=== PATIENT | female | born 1990 | race African-American/Black ===

== ENCOUNTER 2021-05-23 19:39 | Emergency (ER) | payer MEDICAID, OTHER ==
[~2021-05-23] VITALS: Ht 162.6 cm; Wt 102.1 kg
[2021-05-23] MEDS ORDERED: SODIUM CHLORIDE 0.9% 1,000 ML IV ONE (21:30)
[2021-05-23 22:27] LABS: Basophils # (auto) 0.1 10 ^3/uL (0-0.2); Basophils % (auto) 0.9 % (0.0-2.0); Eosinophils # (auto) 0 10 ^3/uL (0-0.8); Eosinophils % (auto) 0.3 % (0.0-7.0); Hematocrit 42.6 % (36.0-46.0); Hemoglobin 14.3 g/dL (12.2-16.2); Lymphocytes # (auto) 2.6 10 ^3/uL (0.4-5.4); Lymphocytes % (auto) 27.2 % (10.0-50.0); Mean Corpuscular Hemoglobin 30.1 pg (28.0-32.0); Mean Corpuscular Hgb Conc. 33.6 g/dL (32.0-36.0); Mean Corpuscular Volume 89.7 fL (80.0-100.0); Monocytes # (auto) 0.7 10 ^3/uL (0-1.3); Monocytes % (auto) 7.2 % (0.0-12.0); Neutrophils # (auto) 6.1 10 ^3/uL (1.6-8.6); Neutrophils % (auto) 64.4 % (37.0-80.0); Nucleated Red Blood Cells % 0.1 %; Red Blood Cells 4.75 10^6/uL (4.0-5.20); Red Cell Distribution Width 14.3 % (11.8-14.3); White Blood Cell 9.4 10^3/uL (4.4-10.8)
[2021-05-23 22:42] LABS: Alanine Aminotransferase 32 U/L (13-56); Albumin 3.5 g/dL (3.4-5.0); Anion Gap 8 (5-15); Aspartate Aminotransferase 14 U/L (15-37); BUN/Creatinine Ratio 10.8; Blood Urea Nitrogen 11 mg/dL (7-18); Calcium 9.1 mg/dL (8.5-10.1); Carbon Dioxide 24 mmol/L (21-32); Chloride 105 mmol/L (98-107); GFR African American 83 mL/min; GFR Non-African American 69 mL/min; Glucose 99 mg/dL (74-106); Magnesium 1.9 mg/dL (1.6-2.6); Potassium 3.9 mmol/L (3.5-5.1); Sodium 137 mmol/L (136-145)
[2021-05-23 22:50] LABS: Alkaline Phosphatase 96 U/L (45-117); Bilirubin, Total 0.4 mg/dL (0.2-1.0)
[2021-05-23 23:45] VITALS: BP 104/60
== END 2021-05-24 01:17 | disposition home or self-care (01) ==
LOC: ER 19:40
DX: F41.8 Other specified anxiety disorders (principal); R11.2 Nausea with vomiting, unspecified
CPT/HCPCS: 36415; 71045; 80053; 83605; 83735; 84484; 85025; 85379; 87040; 96360; 99284; J7030

== ENCOUNTER 2021-08-05 15:53 | Emergency (ER) | payer MEDICAID ==
[~2021-08-05] VITALS: Ht 162.6 cm; Wt 102.1 kg
[2021-08-05] MEDS ORDERED: traMADol HCL 50 MG TAB PO ONE (18:45)
[2021-08-05 20:39] VITALS: BP 108/88
[2021-08-05 20:50] LABS: Basophils # (auto) 0.1 10 ^3/uL (0-0.2); Basophils % (auto) 0.9 % (0.0-2.0); Eosinophils # (auto) 0.1 10 ^3/uL (0-0.8); Eosinophils % (auto) 0.9 % (0.0-7.0); Hematocrit 40.6 % (36.0-46.0); Hemoglobin 13.4 g/dL (12.2-16.2); Lymphocytes # (auto) 3.1 10 ^3/uL (0.4-5.4); Lymphocytes % (auto) 31.5 % (10.0-50.0); Mean Corpuscular Hemoglobin 29.9 pg (28.0-32.0); Mean Corpuscular Hgb Conc. 32.9 g/dL (32.0-36.0); Mean Corpuscular Volume 90.7 fL (80.0-100.0); Monocytes # (auto) 0.6 10 ^3/uL (0-1.3); Monocytes % (auto) 6.3 % (0.0-12.0); Neutrophils % (auto) 60.4 % (37.0-80.0); Nucleated Red Blood Cells % 0.1 %; Red Blood Cells 4.48 10^6/uL (4.0-5.20); Red Cell Distribution Width 14.5 % (11.8-14.3); White Blood Cell 9.9 10^3/uL (4.4-10.8)
[2021-08-05 21:05] LABS: BUN/Creatinine Ratio 8.5; Calcium 9.1 mg/dL (8.5-10.1)
[2021-08-05 21:08] LABS: Bilirubin, Total 0.2 mg/dL (0.2-1.0); Total Protein 8.3 g/dL (6.4-8.2)
== END 2021-08-05 21:51 | disposition home or self-care (01) ==
LOC: ER 15:53
DX: R25.2 Cramp and spasm (principal); M79.605 Pain in left leg; M79.604 Pain in right leg; M79.642 Pain in left hand; M79.641 Pain in right hand
CPT/HCPCS: 36415; 80053; 85025

== ENCOUNTER 2025-01-17 13:42 | Emergency (ER) | payer MEDICAID ==
[~2025-01-17] VITALS: Ht 162.6 cm; Wt 109.0 kg
[2025-01-17 14:40] VITALS: BP 127/60; PULSE 78; RESP 20; TEMP 98.7; O2SAT 99
--- NOTE | 2025-01-17 15:05 | ED.PDOC ---
Musculoskeletal HPI Comments A 34 YEAR OLD FEMALE BROUGHT IN BY AMBULANCE PRESENTS TO THE ED WITH COMPLAINT OF LEFT ANKLE PAIN, LEFT KNEE PAIN, LEFT HIP PAIN, LOWER BACK PAIN, AND LEFT SHOULDER PAIN STATUS POST FALL. PATIENT STATES SHE WAS [place] [employer] [facility] TODAY AND SHE SLIPPED AND FELL. PATIENT REPORTS SHE IS NOW EXPERIENCING LEFT ANKLE PAIN, LEFT KNEE PAIN, LEFT HIP PAIN, LOWER BACK PAIN, AND LEFT SHOULDER PAIN. PATIENT DENIES HEAD INJURY, NECK INJURY, LOC, FEVER, CHILLS, SHORTNESS OF BREATH, CHEST PAIN, ABDOMINAL PAIN, NAUSEA, VOMITING, HEADACHE, OR OTHER COMPLAINTS. NO OTHER SYMPTOMS OR MODIFYING FACTORS AT THIS TIME. PATIENT IS ALERT, ORIENTED X 4, AND HAS STEADY GAIT. Chief Complaint: Fall Injury Time Seen by MD: 14:03 Primary Care Provider: ELICIA Reviewed Notes: Nurses Notes, Reference Services Head Notes, Medications, Allergies Home Meds Active Scripts Methocarbamol (Methocarbamol) 750 Mg Tab, 750 MG PO BID, #20 TAB Prov:JESIKA DESIR 01/17/25 Ibuprofen (Ibuprofen) 800 Mg Tab, 1 TAB PO TID, #30 TAB Prov:JESIKA DESIR 01/17/25 Information Source: Patient, Emergency Med Personnel Mode of Arrival: EMS Location: Left Extremity Location: Ankle, Back (LOWER BACK), Hip, Knee, Shoulder Timing: Hours Prehospital treatment: None Severity: Moderate Able to Move Extremity: Yes Bear Weight: Fully Pain: Moderate Mechanism: Twisting Circumstances: Fall Onset of Symptoms: After Trauma Symptoms: Pain DVT Risk Factors: NONE Last Tetanus: Unknown Associated signs and symptoms: Shoulder pain, Knee pain, Back pain, Ankle pain, Hip pain Past Medical History PAST MEDICAL HISTORY: Anxiety Surgical History: Denies all surgeries ELECTROMECHANIC History: Denies all ELECTROMECHANIC Hx Family History Family History: Reviewed,noncontributory to illness, Family hx of DM Family History (Other): positive for muscle spasms in mother/sister Social History Smoker: Non-Smoker Alcohol: Denies ETOH Use, Occasionally Drugs: Denies Drug Use, Marijuana Lives In: Home Constitutional: reports: others (ANXIOUS ); denies: chills, diaphoresis, fatigue, fever, malaise, sweats, weakness EENTM: denies: blurred vision, double vision, ear bleeding, ear discharge, ear drainage, ear pain, ear ringing, eye pain, eye redness, hearing loss, mouth pain, mouth swelling, nasal discharge, nose bleeding, nose congestion, nose pain, photophobia, tearing, throat pain, throat swelling, voice changes, others Respiratory: denies: cough, hemoptysis, orthopnea, SOB at rest, shortness of breath, SOB with excertion, stridor, wheezing, others Cardiovascular: denies: chest pain, dizzy spells, diaphoresis, Dyspnea on exertion, edema, irregular heart beat, left arm pain, lightheadedness, pa lpitations, PND, syncope, others Gastrointestinal: denies: abdomen distended, abdominal pain, blood streaked bowels, constipated, diarrhea, dysphagia, difficulty swallowing, hematemesis, melena, nausea, poor appetite, poor fluid intake, rectal bleeding, rectal pain, vomiting, others Genitourinary: denies: abnormal vagina bleeding, burning, dyspareunia, dysuria, flank pain, frequency, hematuria, incontinence, pain, , vagina discharge, urgency, others Neurological: denies: dizziness, fainting, headache, left sided numbness, left sided weakness, numbness, paresthesia, pre-existing deficit, right sided numbness, right sided weakness, seizure, speech problems, tingling, tremors, weakness, others Musculoskeletal: reports: back pain, joint pain, muscle pain, others (LEFT SHOULDER PAIN, LEFT KNEE PAIN, LEFT HIP PAIN, LEFT ANKLE PAIN); denies: gout, joint swelling, muscle stiffness, neck pain Integumetry: denies: bruises, change in color, change in hair/nails, dryness, laceration, lesions, lumps, rash, wounds, others Allergic/Immunocompromised: denies: Difficulty Healing, Frequent Infections, Hives, Itching, others Hematologic/Lymphatic: denies: anemia, blood clots, easy bleeding, easy bruising, swollen glands, others Endocrine: denies: excessive hunger, excessive sweating, excessive thirst, excessive urination, flushing, intolerance to cold, intolerance to heat, unexplained weight gain, unexplained weight loss, others Psychiatric: denies: anxiety, bipolar disorder, depression, hopeless, panic disorder, schizophrenia, sleepless, suicidal, others All Other Systems: Reviewed and Negative Physical Exam General Appearance: Mild Distress, Obese HEENT: Normal ENT Inspection, PERRL/EOMI, Pharynx Normal, TMs Normal Neck: Full Range of Motion, Non-Tender, Normal, Normal Inspection Respiratory: Chest Non-Tender, Lungs Clear, No Accessory Muscle Use, No Respiratory Distress, Normal Breath Sounds Cardiovascular: No Edema, No JVD, No Murmur, No Gallop, Normal Peripheral Pulses, Regular Rate/Rhythm Breast Exam: Deferred Gastrointestinal: No Organomegaly, Non Tender, No Pulsatile Mass, Normal Bowel Sounds, Soft Genitalia: Deferred Pelvic: Deferred Rectal: Deferred Extremities: No calf tenderness, Normal capillary refill, Normal range of motion, No pedal edema, Swelling (TENDERNESS AND MILD SWELLING ON LEFT ANKLE, NO BONY TENDERNESS AND DEFORMITY. ), Tender (LEFT HIP AND LEFT SHOULDER, NO BONY TENDERNESS, SWELLING AND DEFORMITY. ), Other (TENDERNESS ON LEFT KNEE, NO BONY TENDERNESS, SWELLING AND DEFORMITY. ) Musculoskeletal : Location: Bilateral Extremity Location: Back Apperance: Tenderness (AND MUSCLE SPASM ON LOW BACK, NO BONY TENDERNESS, SWELLING AND DEFOREMITY. ) Neurologic: Alert, gallery or museum technician II-XII nml as Tested, No Motor Deficits, Normal Affect, Normal Mood, No Sensory Deficits Cerebellar Function: Normal Reflexes: Normal Skin: Dry, Normal Color, Warm Peripheral Pulses: 2+ carotid (R), 2+ carotid (L), 2+ dorsalis pedis (R), 2+ dorsalis pedis (L) Lymphatic: No Adenopathy Was a procedure done? Was a procedure done?: No Differential Diagnosis EXT Differential Diagnosis: Fracture, Sprain, Dislocation, Contusion, Strain, Bursitis X-Ray, Labs, Meds, VS Vital Signs Date Time Temp Pulse Resp B/P (MAP) Pulse Ox O2 Delivery O2 Flow Rate FiO2 01/17/25 14:40 78 20 99 Room Air 01/17/25 14:40 98.7 78 17 127/60 (82) 99 98.7 01/17/25 13:51 98.3 81 22 117/57 (77) 99 98.3 EXAM: XR Left Ankle Complete, 3 or More Views CLINICAL INDICATION: FALL TECHNIQUE: Frontal, lateral and oblique views of the left ankle. COMPARISON: None FINDINGS: BONES/JOINTS: See below. SOFT TISSUES: Soft tissue swelling without acute fracture. OTHER FINDINGS: . IMPRESSION: 1. Soft tissue swelling without acute fracture. 2. If symptoms persist, further evaluation with CT is recommended. ATED BY: RHODA WORTHY MD DICTATED DATE/TIME: 01/17/251607 SIGNED BY: RHODA WORTHY MD SIGNED DATE/TIME: 01/17/251607 CC: CLINICAL INDICATION: FALL TECHNIQUE: 3 radiographic views of the left hip were obtained. Comparison: None FINDINGS/IMPRESSION: IUD in the pelvis. There is no evidence of acute fracture or dislocation. The visualized joint space is well maintained. The alignment is anatomical. There is no radiopaque foreign body. HS:Y ATED BY: ISAC JORGE Jr., DO DICTATED DATE/TIME: 01/17/251607 SIGNED BY: ISAC JORGE Jr., DO SIGNED DATE/TIME: 01/17/251607 CC: EXAM: XR Left Knee, 1 or 2 Views CLINICAL INDICATION: FALL TECHNIQUE: Frontal and/or lateral views of the left knee. COMPARISON: None FINDINGS: BONES/JOINTS: Unremarkable. No acute fracture. No dislocation. SOFT TISSUES: Unremarkable. OTHER FINDINGS: . None. IMPRESSION: No acute fracture. ATED BY: RHODA WORTHY MD DICTATED DATE/TIME: 01/17/251606 SIGNED BY: RHODA WORTHY MD SIGNED DATE/TIME: 01/17/251606 CC: EXAM: XR Left Shoulder Complete, 2 or More Views CLINICAL INDICATION: FALL TECHNIQUE: Two or more views of the left shoulder. COMPARISON: None FINDINGS: BONES/JOINTS: Unremarkable. No acute fracture. No dislocation. SOFT TISSUES: Unremarkable. OTHER FINDINGS: . None. IMPRESSION: No acute fracture. ATED BY: RHODA WORTHY MD DICTATED DATE/TIME: 01/17/251607 SIGNED BY: RHODA WORTHY MD SIGNED DATE/TIME: 01/17/251607 CC: EXAM: XY LUMBAR SPINE 3 VIEW INDICATION: FALL COMPARISON: None TECHNIQUE: 2 views of the lumbar spine were obtained. Findings: There is no evidence of an acute fracture, spondylolysis, or spondylolisthesis. The vertebral body heights and disc spaces are well-maintained. No blastic or lytic lesions are appreciated. No radiopaque foreign bodies. No superficial soft tissue abnormalities. Impression: 1. No acute osseous abnormality. ATED BY: KARLEE CHAMBERS DO DICTATED DATE/TIME: 01/17/251617 SIGNED BY: KARLEE CHAMBERS DO SIGNED DATE/TIME: 01/17/251617 CC: X-Ray, Labs, Meds, VS Comment EXTERNAL MEDICAL RECORDS REVIEWED: [NONE] INDEPENDENT HISTORIANS: [NONE] SOCIAL DETERMINANTS OF HEALTH: [NONE] LABS ORDERED: NONE REVIEWED AND INTERPRETED RESULTS: NONE IMAGING ORDERED: XR ANKLE LT, XR KNEE LT, XR HIP LT, XR SHOULDER LT, XR L-SPINE TREATMENTS ORDERED: PATIENT WAS GIVEN 10MCG OF FENTANYL BY EMS. PROCEDURES PERFORMED: NONE CRITICAL CARE TIME: NONE I HAVE DISCUSSED THE PATIENT WITH THE ATTENDING PHYSICIAN DR. BELLO AND HE AGREES WITH THE PATIENT'S PLAN OF CARE AND DISPOSITION. BASED ON HISTORY OF PRESENT ILLNESS, AND PHYSICAL EXAM, PATIENT WILL BE DISCHARGED HOME. DISCUSSED PLAN FOR DISCHARGE HOME WITH RX [IBUPROFEN 800MG AND ROBAXIN]. MEDICATION WARNINGS GIVEN. SHARED DECISION MAKING: PATIENT INSTRUCTED TO FOLLOW UP WITH PRIMARY CARE PROVIDER IN 1-2 DAYS FOR RE-EVALUATION OF SYMPTOMS. PATIENT VERBALIZES UNDERSTANDING TO RETURN TO ED FOR NEW OR WORSENING SYMPTOMS OR IF FOLLOW UP WITH PCP CANNOT BE OBTAINED. PATIENT FEELS COMFORTABLE GOING HOME AT THIS TIME. ALL QUESTIONS ADDRESSED AT TIME OF DISCHARGE. Images Reviewed?: Images reviewed and evaluated by me Time of 1ST Reevaluation: 16:35 Reevaluation 1ST: Improved Patient Education/Counseling: Diagnosis, Treatment, Need For Follow Up Family Education/Counseling: Diagnosis, Treatment, Need For Follow Up Medical Screening: No EMC Exist At This Time Departure 1 Departure Time of Disposition: 16:35 Impression: Primary Impression: Sprain of left ankle Qualified Codes: S93.402A - Sprain of unspecified ligament of left ankle, initial encounter Additional Impressions: Sprain of left knee Qualified Codes: S83.92XA - Sprain of unspecified site of left knee, initial encounter Muscle strain of left hip Qualified Codes: S76.012A - Strain of muscle, fascia and tendon of left hip, initial encounter Low back strain Qualified Codes: S39.012A - Strain of muscle, fascia and tendon of lower back, initial encounter Muscle strain of left shoulder Qualified Codes: S46.912A - Strain of unspecified muscle, fascia and tendon at shoulder and upper arm level, left arm, initial encounter Status post fall Disposition: 01 HOME / SELF CARE / HOMELESS Condition: Stable Additional Instructions: FOLLOW-UP WITH PCP IN 1 TO 2 DAYS. TAKE MEDICATIONS PRESCRIBED. RETURN TO ED FOR ANY NEW OR WORSENING SYMPTOMS. e-Prescriptions Methocarbamol (Methocarbamol) 750 Mg Tab 750 MG PO BID, #20 TAB Prov: JESIKA DESIR 01/17/25 Ibuprofen (Ibuprofen) 800 Mg Tab 1 TAB PO TID, #30 TAB Prov: JESIKA DESIR 01/17/25 Discharged With: Self, Relative Critical Care Note Critical Care Time?: No Stability Stability form required: No I personally scribed for JESIKA DESIR ([email or web address]) on 01/17/25 at 15:05. Electronically submitted by Irving Barrientos (AIT). I personally scribed for JESIKA DESIR ([email or web address]) on 01/17/25 at 15:18. Electronically submitted by Irving Barrientos (AIT). I personally scribed for JESIKA DESIR ([email or web address]) on 01/17/25 at 16:31. Electronically submitted by Irving Barrientos (AIT). JESIKA DESIR Jan 17, 2025 15:05
--- NOTE | 2025-01-17 16:09 | DVH ---
EXAM: XR Left Knee, 1 or 2 Views CLINICAL INDICATION: FALL TECHNIQUE: Frontal and/or lateral views of the left knee. COMPARISON: None FINDINGS: BONES/JOINTS: Unremarkable. No acute fracture. No dislocation. SOFT TISSUES: Unremarkable. OTHER FINDINGS: . None. IMPRESSION: No acute fracture.
--- NOTE | 2025-01-17 16:10 | DVH ---
EXAM: XR Left Ankle Complete, 3 or More Views CLINICAL INDICATION: FALL TECHNIQUE: Frontal, lateral and oblique views of the left ankle. COMPARISON: None FINDINGS: BONES/JOINTS: See below. SOFT TISSUES: Soft tissue swelling without acute fracture. OTHER FINDINGS: . IMPRESSION: 1. Soft tissue swelling without acute fracture. 2. If symptoms persist, further evaluation with CT is recommended.
--- NOTE | 2025-01-17 16:10 | DVH ---
EXAM: XR Left Shoulder Complete, 2 or More Views CLINICAL INDICATION: FALL TECHNIQUE: Two or more views of the left shoulder. COMPARISON: None FINDINGS: BONES/JOINTS: Unremarkable. No acute fracture. No dislocation. SOFT TISSUES: Unremarkable. OTHER FINDINGS: . None. IMPRESSION: No acute fracture.
--- NOTE | 2025-01-17 16:10 | DVH ---
CLINICAL INDICATION: FALL TECHNIQUE: 3 radiographic views of the left hip were obtained. Comparison: None FINDINGS/IMPRESSION: IUD in the pelvis. There is no evidence of acute fracture or dislocation. The visualized joint space is well maintained. The alignment is anatomical. There is no radiopaque foreign body. HS:Y
--- NOTE | 2025-01-17 16:21 | DVH ---
EXAM: XY LUMBAR SPINE 3 VIEW INDICATION: FALL COMPARISON: None TECHNIQUE: 2 views of the lumbar spine were obtained. Findings: There is no evidence of an acute fracture, spondylolysis, or spondylolisthesis. The vertebral body heights and disc spaces are well-maintained. No blastic or lytic lesions are appreciated. No radiopaque foreign bodies. No superficial soft tissue abnormalities. Impression: 1. No acute osseous abnormality.
[2025-01-17] MEDS ORDERED: IBUP-1456 PO (16:30)
[2025-01-17] MEDS ORDERED: METH-1182 PO (16:30)
== END 2025-01-17 16:35 | disposition home or self-care (01) ==
LOC: ER 13:42 → EDBD 13:42 → ER 16:34
DX: S39.012A Strain of muscle, fascia and tendon of lower back, initial encounter (principal); S46.912A Strain of unspecified muscle, fascia and tendon at shoulder and upper arm level, left arm, initial encounter; S83.92XA Sprain of unspecified site of left knee, initial encounter; S76.012A Strain of muscle, fascia and tendon of left hip, initial encounter; S93.402A Sprain of unspecified ligament of left ankle, initial encounter; F12.90 Cannabis use, unspecified, uncomplicated; F41.9 Anxiety disorder, unspecified; Z79.1 Long term (current) use of non-steroidal anti-inflammatories (NSAID); Z79.899 Other long term (current) drug therapy; W19.XXXA Unspecified fall, initial encounter; Y93.89 Activity, other specified; Y92.89 Other specified places as the place of occurrence of the external cause; Y99.8 Other external cause status
CPT/HCPCS: 72100; 73030; 73502; 73560; 73610

== ENCOUNTER 2025-09-18 10:44 | Emergency (ER) | payer MEDICAID ==
[~2025-09-18] VITALS: Ht 162.6 cm; Wt 91.8 kg
[~2025-09-18 10:44] MED LIST: IBUP-1456 PO; METH-1182 PO
--- NOTE | 2025-09-18 12:09 | ED.PDOC ---
General HPI Comments HPI: A 34 year-old female presents to the ED via wheelchair with a chief complaint of UTI with associated symptoms of N/V, chills, and restlessness as of yesterday. Pt reports X4 episodes of emesis today. Patient states she is currently taking Zepbound for weight-loss. Patient denies any recent MJ usage or ETOH intoxification. Patient has no further complaints at this time and denies symptoms of hematemesis, dizziness, weakness, or fever. Initial Vitals BP: 134/85 HR: 91 RR: 16 O2: 99 Temp: 98.2 Past Medical History: Anxiety Past Surgical History: None Social History: MJ usage and occasional ETOH intoxification Medications: Zepbound, Pantoprazol, Cetirizine Allergies: Amoxicillin Chief Complaint: Nausea/Vomiting Time Seen by MD: 11:40 Primary Care Provider: ELICIA Reviewed notes: Medications, Allergies Allergies: Coded Allergies: Amoxicillin (Verified Allergy, Unknown, 09/18/25) Home Meds Active Scripts Ondansetron Odt 4MG Tab (ZOFRAN PO) 4 Mg Tb, 4 MG PO Q8HPRN PRN for 3 Days, #9 TAB ODT TAB-DISSOLVE IN MOUTH, THEN SWALLOW Prov:DL LION DO 09/18/25 Methocarbamol (Methocarbamol) 750 Mg Tab, 750 MG PO BID, #20 TAB Prov:JESIKA DESIR 01/17/25 Ibuprofen (Ibuprofen) 800 Mg Tab, 1 TAB PO TID, #30 TAB Prov:JESIKA DESIR 01/17/25 Information Source: Patient Mode of Arrival: EMS Severity: Moderate Timing: Days Duration: Since onset History of: UTI associated signs and symptoms: Nausea, Vomiting, Dysuria, Other (body chills) Past Medical History PAST MEDICAL HISTORY: Anxiety Surgical History: Denies all surgeries [employer]INCIP[employer] TECH[employer]ICAL [employer]CHITECT History: Denies all [employer]INCIPAL TECHNICAL [employer]CHITECT Hx Family History Family History: Reviewed,noncontributory to illness, Family hx of DM Family History (Other): positive for muscle spasms in mother/sister Social History Smoker: Non-Smoker Alcohol: Occasionally Drugs: Marijuana Lives In: Home Was a procedure done? Was a procedure done?: No Differential Diagnosis Urinary Problem (Female): Urolithiasis, UTI, Vaginitis X-Ray, Labs, Meds, VS Vital Signs Date Time Temp Pulse Resp B/P (MAP) Pulse Ox O2 Delivery O2 Flow Rate FiO2 09/18/25 20:31 98.1 80 18 118/78 (91) 97 98.1 09/18/25 20:31 78 18 97 Room Air* 0 21 09/18/25 18:33 100 18 100 Room Air* 0 21 09/18/25 18:33 98.5 100 18 123/83 (96) 100 98.5 09/18/25 14:37 98.3 74 18 135/76 (95) 100 98.3 09/18/25 11:43 98.2 91 16 134/85 (101) 98.2 09/18/25 10:56 99.0 104 22 122/83 99 99.0 Lab Test 09/18/25 12:48 09/18/25 12:18 Range/Units Urine Color Brown H Yellow Urine Clarity Turbid H Clear Urine pH 6.0 5.0-9.0 Urine Specific [place] 1.033 1.001-1.035 Urine Protein 1+ H Negative Urine Ketones 3+ H Negative Urine Blood 3+ H Negative /uL Urine Nitrite Negative Negative Urine Bilirubin Negative Negative Urine Urobilinogen Normal Negative mg/dL Urine Leukocyte Esterase 1+ Negative /uL Urine RBC 5340 0 - 4 /hpf Urine Microscopic WBC 6 H 0-5 /HPF Urine Squamous Epithelial Cells Few <5 /hpf Urine Bacteria None seen None Seen /hpf Urine Mucus Few None Seen Urine Glucose Normal Normal mg/dL Urine Test Negative Negative White Blood Count 8.9 4.4-10.8 10^3/uL Red Blood Count 4.49 4.0-5.20 10^6/uL Hemoglobin 13.1 12.2-16.2 g/dL Hematocrit 39.3 36.0-46.0 % Mean Corpuscular Volume 87.6 80.0-100.0 fL Mean Corpuscular Hemoglobin 29.0 28.0-32.0 pg Mean Corpuscular Hemoglobin Concent 33.2 32.0-36.0 g/dL Red Cell Distribution Width 15.7 H 11.8-14.3 % Platelet Count 223 140-450 10^3/uL Mean Platelet Volume 11.8 H 6.9-10.8 fL Neutrophils (%) (Auto) 83.3 H 37.0-80.0 % Lymphocytes (%) (Auto) 11.1 10.0-50.0 % Monocytes (%) (Auto) 5.3 0.0-12.0 % Eosinophils (%) (Auto) 0.0 0.0-7.0 % Basophils (%) (Auto) 0.3 0.0-2.0 % Neutrophils # (Auto) 7.5 1.6-8.6 10 ^3/uL Lymphocytes # (Auto) 1.0 0.4-5.4 10 ^3/uL Monocytes # (Auto) 0.5 0-1.3 10 ^3/uL Eosinophils # (Auto) 0 0-0.8 10 ^3/uL Basophils # (Auto) 0 0-0.2 10 ^3/uL Nucleated Red Blood Cells 0.1 % Sodium Level 142 136-145 mmol/L Potassium Level 2.9 L 3.5-5.1 mmol/L Chloride Level 108 H 98-107 mmol/L Carbon Dioxide Level 19 L 20-31 mmol/L Anion Gap 15 5-15 Blood Urea Nitrogen 10 9-23 mg/dL Creatinine 0.87 0.550-1.02 mg/dL Glomerular Filtration Rate Calc 91 >90 mL/min BUN/Creatinine Ratio 11.5 10.0-20.0 Serum Glucose 105 74-106 mg/dL Lactic Acid Level 1.7 0.4-2.0 mmol/L Calcium Level 9.0 8.7-10.4 mg/dL Magnesium Level 1.7 1.6-2.6 mg/dL Total Bilirubin 0.5 0.2-1.0 mg/dL Aspartate Amino Transferase (AST) 26 13-40 U/L Alanine Aminotransferase (ALT) 45 H 7-40 U/L Alkaline Phosphatase 65 46-116 U/L B-Type Natriuretic Peptide 90.38 0-100 pg/mL Total Protein 7.7 5.7-8.2 g/dL Albumin 4.2 3.2-4.8 g/dL Lipase 22 12-53 U/L Current Medications Medications (Trade) Dose Ordered Sig/Kalyan Route Start Time Stop Time Status Last Admin Sodium Chloride 1,000 ml @ 1,000 mls/hr Q1H ONCE IV 09/18/25 12:15 09/18/25 13:14 DC 09/18/25 12:19 Ondansetron HCl (Zofran) 8 mg ONCE ONCE IV 09/18/25 12:15 09/18/25 12:16 DC 09/18/25 12:32 Ceftriaxone Sodium 50 ml @ 100 mls/hr ONCE ONCE IV 09/18/25 12:15 09/18/25 12:44 DC 09/18/25 12:31 Potassium Chloride (Klor-Con Tablet) 60 meq ONCE ONCE PO 09/18/25 13:15 09/18/25 13:16 DC 09/18/25 13:40 Metoclopramide HCl (Reglan Injection) 5 mg ONCE ONCE IV 09/18/25 14:15 09/18/25 14:16 DC 09/18/25 15:03 Potassium Chloride 100 ml @ 50 mls/hr Q2H IV 09/18/25 16:15 09/18/25 20:14 DC 09/18/25 18:15 [place] [address] Ph: [phone] DIAGNOSTIC IMAGING Diagnostic Imaging Report : [id number] Signed PATIENT: DENNIS RUST ACCT: [id number] UNIT: [id number] : 1990 LOC: ER ROOM / BED: / AGE / SEX: 34 / F ADM STATUS: REG ER SERVICE 01 ORDERING PHYSICIAN: DL LION DO PROCEDURE(s): ABPL - CT AB PEL WO CON-NO ORAL OR IV REASON: abd pain n/v ORDER NUMBER(s): [id number], ACCESSION NUMBER(s): [id number] CLINICAL HISTORY: Abd pain n/v. TECHNIQUE: CT of the abdomen and pelvis was performed without intravenous contrast. This exam was performed according to our departmental dose optimization program. Up-to-date CT equipment and radiation dose reduction techniques are utilized as appropriate. CTDIvol: 11.5 mGy; DLP: 653.4 mGy-cm. COMPARISON: None available. FINDINGS: Lack of intravenous contrast limits assessment of the organs and vasculature. Within this limitation, the following assessment is made: Lower Chest: Lung Bases: Clear. Abdomen and Pelvis: Liver: Unremarkable. Gallbladder: Unremarkable. Bile Ducts: Unremarkable. Pancreas: Unremarkable. Spleen: Unremarkable. Adrenal glands: Unremarkable. Kidneys/Ureters: Unremarkable. Stomach: Small hiatal hernia. Small and Large Bowel: No evidence of bowel obstruction or abnormal bowel wall thickening. Mild sigmoid colon diverticulosis without evidence of diverticulitis. Appendix: Normal. Vasculature: Unremarkable. No evidence of an abdominal aortic aneurysm. Lymph nodes: Unremarkable. Mesentery: No evidence of intraperitoneal free gas or liquid. Pelvic Organs: Unremarkable. Bladder: Unremarkable. Abdominal Wall: Small fat-containing umbilical hernia. Soft tissues: Unremarkable. Bones: Unremarkable. Other: None. IMPRESSION: 1. No acute intra-abdominal or intrapelvic abnormality. 2. Mild sigmoid colon diverticulosis without evidence of diverticulitis. 3. Small hiatal hernia. ATED BY: LAKHWINDER VELASCO MD DICTATED DATE/TIME: 09/18/252153 SIGNED BY: LAKHWINDER VELASCO MD SIGNED DATE/TIME: 09/18/252153 CC: Time of 1ST Reevaluation: 12:43 Reevaluation 1ST: Unchanged Time of 2ND Reevaluation: 22:12 (Patient no longer complains of nausea, vomiting, or pain. Has anxiety at home ) Reevaluation 2ND: Resolved Patient Education/Counseling: Diagnosis, Treatment Family Education/Counseling: No Family Present Departure 1 Departure Time of Disposition: 17:24 Impression: Primary Impression: UTI (urinary tract infection) Additional Impressions: Nausea and vomiting Hypokalemia Anxiety Disposition: 01 HOME / SELF CARE / HOMELESS Condition: Stable Additional Instructions: Additional instructions: Please read all instructions provided in this packet carefully. You MUST follow-up with your primary care/family doctor in 1 to 2 days. If you are unable to see your primary care/family doctor, please return to our emergency room for re-assessment and re-evaluation in 1 to 2 days. Return to the emergency room here in our facility or to the nearest ER [facility] if your symptoms change or worsen. CONSULTATIONS: you MUST Follow-up for consultation as soon as possible with: -gastroenterology and urology in 1-2 days. Please call for appointment. You MUST call the consultants office yourself to make an appointment. You may need to arrange that through your insurance and/or your primary/family doctor. If you are unable to see the contamination consultant in 1 to 2 days, you must return to our emergency room (or any other ER of your choice) for re-assessment and re- evaluation. Adequate fluid hydration. Although you have been discharged from the Emergency Department, this does not mean that you have a "clean bill of health". No definitive diagnosis for your symptoms has been made today. It is possible that you are in the process of developing a serious illness. This is why you must return to the ED without fail if any new or worsening symptoms develop. You already have antibiotics for UTI. Please continue using them. Please seek help regarding your history of anxiety. You already have medications at home. Below is a copy of your radiological report for follow up: [address] [address] Ph: [phone] DIAGNOSTIC IMAGING Diagnostic Imaging Report : [id number] Signed PATIENT: DENNIS RUST ACCT: [id number] UNIT: [id number] : 1990 LOC: ER ROOM / BED: / AGE / SEX: 34 / F ADM STATUS: REG ER SERVICE 01 ORDERING PHYSICIAN: DL LION DO PROCEDURE(s): ABPL - CT AB PEL WO CON-NO ORAL OR IV REASON: abd pain n/v ORDER NUMBER(s): [id number], ACCESSION NUMBER(s): [id number] CLINICAL HISTORY: Abd pain n/v. TECHNIQUE: CT of the abdomen and pelvis was performed without intravenous contrast. This exam was performed according to our departmental dose optimization program. Up-to-date CT equipment and radiation dose reduction techniques are utilized as appropriate. CTDIvol: 11.5 mGy; DLP: 653.4 mGy-cm. COMPARISON: None available. FINDINGS: Lack of intravenous contrast limits assessment of the organs and vasculature. Within this limitation, the following assessment is made: Lower Chest: Lung Bases: Clear. Abdomen and Pelvis: Liver: Unremarkable. Gallbladder: Unremarkable. Bile Ducts: Unremarkable. Pancreas: Unremarkable. Spleen: Unremarkable. Adrenal glands: Unremarkable. Kidneys/Ureters: Unremarkable. Stomach: Small hiatal hernia. Small and Large Bowel: No evidence of bowel obstruction or abnormal bowel wall thickening. Mild sigmoid colon diverticulosis without evidence of diverticulitis. Appendix: Normal. Vasculature: Unremarkable. No evidence of an abdominal aortic aneurysm. Lymph nodes: Unremarkable. Mesentery: No evidence of intraperitoneal free gas or liquid. Pelvic Organs: Unremarkable. Bladder: Unremarkable. Abdominal Wall: Small fat-containing umbilical hernia. Soft tissues: Unremarkable. Bones: Unremarkable. Other: None. IMPRESSION: 1. No acute intra-abdominal or intrapelvic abnormality. 2. Mild sigmoid colon diverticulosis without evidence of diverticulitis. 3. Small hiatal hernia. ATED BY: LAKHWINDER VELASCO MD DICTATED DATE/TIME: 09/18/252153 SIGNED BY: LAKHWINDER VELASCO MD SIGNED DATE/TIME: 09/18/252153 CC: e-Prescriptions Ondansetron Odt 4MG Tab (ZOFRAN PO) 4 Mg Tb 4 MG PO Q8HPRN PRN for 3 Days, #9 TAB ODT TAB-DISSOLVE IN MOUTH, THEN SWALLOW Prov: DL LION DO 09/18/25 Discharged With: Self Critical Care Note Critical Care Time?: No I personally scribed for DL LION DO ([email or web address]) on 09/18/25 at 12:09. Electronically submitted by Meron Delong ([facility]). I personally scribed for DL LION DO ([email or web address]) on 09/18/25 at 19:58. Electronically submitted by Odilia Diaz ([facility]). I personally scribed for DL LION DO ([email or web address]) on 09/18/25 at 22:08. Electronically submitted by Odilia Diaz ([facility]). I personally scribed for DL LION DO ([email or web address]) on 09/18/25 at 22:18. Electronically submitted by Odilia Diaz ([facility]). DL LION DO Sep 18, 2025 12:09
[2025-09-18] MEDS: SODIUM CHLORIDE 0.9% 1,000 ML IV ONE (12:19)
[2025-09-18] MEDS: ONDANSETRON HCL 4 MG/2 ML VIAL IV ONE (12:32)
[2025-09-18 12:46] LABS: Hematocrit 39.3 % (36.0-46.0); Hemoglobin 13.1 g/dL (12.2-16.2); Mean Corpuscular Hemoglobin 29.0 pg (28.0-32.0); Mean Corpuscular Volume 87.6 fL (80.0-100.0); Nucleated Red Blood Cells % 0.1 %
[2025-09-18 12:53] LABS: Albumin 4.2 g/dL (3.2-4.8); Alkaline Phosphatase 65 U/L (46-116); Anion Gap 15 (5-15); BUN/Creatinine Ratio 11.5 (10.0-20.0); Blood Urea Nitrogen 10 mg/dL (9-23); Calcium 9.0 mg/dL (8.7-10.4); Glucose 105 mg/dL (74-106); Magnesium 1.7 mg/dL (1.6-2.6); Sodium 142 mmol/L (136-145); Total Protein 7.7 g/dL (5.7-8.2)
[2025-09-18 12:54] LABS: Bilirubin, Total 0.5 mg/dL (0.2-1.0)
[2025-09-18 12:56] LABS: Alanine Aminotransferase 45 U/L (7-40); Carbon Dioxide 19 mmol/L (20-31); Chloride 108 mmol/L (98-107); Lipase 22 U/L (12-53); Potassium 2.9 mmol/L (3.5-5.1)
[2025-09-18] MEDS: POTASSIUM CHL 20 Meq TABLET PO ONE (13:40)
[2025-09-18 14:13] LABS: Urine Protein, UAD 1+ (Negative)
[2025-09-18] MEDS: METOCLOPRAMIDE HCL 5MG/ml INJ 2ml VIAL IV ONE (15:03)
[2025-09-18] MEDS: POTASSIUM CHL 20MEQ/100ML 100 ML IV SCH (17:28)
[2025-09-18 18:33] VITALS: PULSE 100; RESP 18; O2SAT 100
[2025-09-18 20:31] VITALS: BP 118/78; PULSE 78; RESP 18; TEMP 98.1; O2SAT 97
--- NOTE | 2025-09-18 21:56 | DVH ---
CLINICAL HISTORY: Abd pain n/v. TECHNIQUE: CT of the abdomen and pelvis was performed without intravenous contrast. This exam was performed according to our departmental dose optimization program. Up-to-date CT equipment and radiation dose reduction techniques are utilized as appropriate. CTDIvol: 11.5 mGy; DLP: 653.4 mGy-cm. COMPARISON: None available. FINDINGS: Lack of intravenous contrast limits assessment of the organs and vasculature. Within this limitation, the following assessment is made: Lower Chest: Lung Bases: Clear. Abdomen and Pelvis: Liver: Unremarkable. Gallbladder: Unremarkable. Bile Ducts: Unremarkable. Pancreas: Unremarkable. Spleen: Unremarkable. Adrenal glands: Unremarkable. Kidneys/Ureters: Unremarkable. Stomach: Small hiatal hernia. Small and Large Bowel: No evidence of bowel obstruction or abnormal bowel wall thickening. Mild sigmoid colon diverticulosis without evidence of diverticulitis. Appendix: Normal. Vasculature: Unremarkable. No evidence of an abdominal aortic aneurysm. Lymph nodes: Unremarkable. Mesentery: No evidence of intraperitoneal free gas or liquid. Pelvic Organs: Unremarkable. Bladder: Unremarkable. Abdominal Wall: Small fat-containing umbilical hernia. Soft tissues: Unremarkable. Bones: Unremarkable. Other: None. IMPRESSION: 1. No acute intra-abdominal or intrapelvic abnormality. 2. Mild sigmoid colon diverticulosis without evidence of diverticulitis. 3. Small hiatal hernia.
[2025-09-18] MEDS ORDERED: LORazepam 2MG/ML-1ML VIAL IV ONE (22:00)
[2025-09-18] MEDS ORDERED: ZOFR4T PO (22:20)
== END 2025-09-18 22:20 | disposition home or self-care (01) ==
LOC: ER 10:44 → EDBD 10:44 → ER 22:20
DX: N39.0 Urinary tract infection, site not specified (principal); R11.2 Nausea with vomiting, unspecified; E87.6 Hypokalemia; F41.9 Anxiety disorder, unspecified; Z88.0 Allergy status to penicillin; Z79.899 Other long term (current) drug therapy
CPT/HCPCS: 36415; 74176; 80053; 81001; 81025; 83605; 83690; 83735; 83880; 85025; 87040; 96361; 96365; 96366; 96367; 96375; 99285; J0696; J2405; J2765; J3480; J7030